=== PATIENT | male | born 1990 | race African-American/Black ===

== ENCOUNTER 2024-02-26 18:39 | Inpatient (IN) | payer MEDICAID, OTHER ==
[~2024-02-26] VITALS: Ht 177.8 cm; Wt 107.7 kg
[2024-02-26] MEDS ORDERED: FLUO-418 PO (20:14)
[2024-02-26] MEDS ORDERED: HYDR-4584 PO (20:14)
[2024-02-26 20:46] LABS: BASOPHILS % (AUTO) 0.5 % (0.0-2.0); EOSINOPHILS % (AUTO) 0.2 % (1.0-6.0); HEMATOCRIT 47.1 % (41-53); HEMOGLOBIN 15.3 g/dL (13.5-17.5); LYMPHOCYTES # (AUTO) 1.3 K/uL (1.0-4.8); LYMPHOCYTES % (AUTO) 8.3 % (22.0-44.0); MEAN CORPUSCULAR HEMOGLOBIN 28.3 pg (26.0-34.0); MEAN CORPUSCULAR HGB CONC 32.4 G/dL (31.0-37.0); MEAN CORPUSCULAR VOLUME 88 fL (80-100); MONOCYTES # (AUTO) 1.2 K/uL (0.1-1.0); MONOCYTES % (AUTO) 7.7 % (2.0-9.0); NEUTROPHILS # (AUTO) 13.1 K/uL (1.8-7.7); NEUTROPHILS % (AUTO) 83.3 % (40.0-70.0); PLATELET COUNT (AUTO) 319 K/uL (150-450); RED BLOOD CELL COUNT(AUTO) 5.39 MIL/uL (4.50-5.90); RED CELL DISTRIBUTION WIDTH 14.2 % (11.5-14.5); WHITE BLOOD COUNT (AUTO) 15.7 K/uL (4.5-11.0)
[2024-02-26 20:54] LABS: ANION GAP 9 mmol/L (8-16); CARBON DIOXIDE 27 mmol/L (22-29); CHLORIDE 107 mmol/L (98-107); CREATININE 1.91 mg/dL (0.60-1.30); GLOMERULAR FILTR. RATE CALC 50 mL/min (>60); GLUCOSE,RANDOM 104 mg/dL (70-110); SODIUM SERUM 143 mmol/L (136-145); UREA NITROGEN, BLOOD 21 mg/dL (7-18)
[2024-02-26 21:24] LABS: ALCOHOL, BLOOD (SERUM) < 3 mg/dL (0-10)
[2024-02-26] MEDS ORDERED: HALOPERIDOL 5 MG TABLET PO PRN (21:30)
[2024-02-26] MEDS ORDERED: LORazepam 2 MG TABLET PO PRN (21:30)
[2024-02-26] MEDS ORDERED: ZOLPIDEM TARTRATE 10 MG TABLET PO PRN (21:30)
[2024-02-26 21:58] LABS: COVID AG,FIA SOURCE NASAL SWAB
[2024-02-26 22:19] LABS: SARS-COV2 (COVID) ANTIGEN,FIA Negative (Negative)
[2024-02-26 23:47] VITALS: BP 140/89; PULSE 97; RESP 18; TEMP 97.7; O2SAT 96
[2024-02-26 23:53] VITALS: BP 140/89; PULSE 97; RESP 18; TEMP 97.7; O2SAT 96
[2024-02-27] MEDS ORDERED: INFLUENZA VIRUS VACCINE TVS (6MO+) 2024-25/PF 45 MCG/0.5 ML SYRINGE IM. ONE (00:15)
[2024-02-27 09:43] VITALS: BP 143/96; PULSE 91; RESP 18; TEMP 97.6; O2SAT 97
[2024-02-27] MEDS: FLUoxetine HCL 20 MG CAPSULE PO SCH (13:08)
[2024-02-27] MEDS ORDERED: MAGNESIUM HYDROXIDE SUSPENSION 30 ML UDCUP PO PRN (19:00)
[2024-02-27] MEDS ORDERED: DOCUSATE SODIUM 100 MG CAPSULE PO PRN (19:00)
[2024-02-27] MEDS ORDERED: CloNIDine HCL 0.1 MG TABLET PO PRN (19:00)
[2024-02-27] MEDS ORDERED: NICOTINE 14 MG/24 HOUR PATCH TD PRN (19:00)
[2024-02-27] MEDS ORDERED: PETROLATUM,WHITE 28 GM JELLY TP PRN (19:00)
[2024-02-27] MEDS ORDERED: LOPERAMIDE HCL 2 MG CAPSULE PO PRN (19:00)
[2024-02-27] MEDS ORDERED: ALBUTEROL SULFATE HFA 90 MCG/PUFF 8 GM INHALER IH PRN (19:00)
[2024-02-27] MEDS ORDERED: MAG HYDROX/ALUMINUM HYD/SIMETH ES 30 ML SUSPENSION UDCUP PO PRN (19:00)
[2024-02-27] MEDS ORDERED: ONDANSETRON 4 MG TABLET PO PRN (19:00)
[2024-02-27] MEDS ORDERED: IBUPROFEN 400 MG TABLET PO PRN (19:00)
[2024-02-27] MEDS ORDERED: ACETAMINOPHEN 325 MG TABLET PO PRN (19:00)
[2024-02-27] MEDS ORDERED: GuaiFENesin/D-METHORPHAN [SUGAR-FREE] 200-20MG/10 ML SYRUP UDCUP PO PRN (19:00)
[2024-02-27 20:47] VITALS: BP 111/71; PULSE 87; RESP 18; TEMP 98.6; O2SAT 99
[2024-02-28 08:44] VITALS: BP 146/94; PULSE 98; RESP 18; TEMP 97.5; O2SAT 98
[2024-02-28 09:06] LABS: THYROID STIMULATING HORMONE 0.89 uIU/mL (0.36-3.74)
[2024-02-28 09:26] LABS: HEMOGLOBIN A1C 5.8 % (3.8-5.6)
[2024-02-28 12:24] LABS: CHOL/HDL RATIO 3.3 (4.2-7.3)
[2024-02-28 20:21] VITALS: BP 105/66; PULSE 97; RESP 17; TEMP 97.5; O2SAT 97
[2024-02-29 08:18] LABS: ANION GAP 6 mmol/L (8-16); CALCIUM, TOTAL 9.1 mg/dL (8.8-10.5); CARBON DIOXIDE 30 mmol/L (22-29); CHLORIDE 101 mmol/L (98-107); CREATININE 1.36 mg/dL (0.60-1.30); GLOMERULAR FILTR. RATE CALC > 60 mL/min (>60); GLUCOSE,RANDOM 96 mg/dL (70-110); POTASSIUM 4.1 mmol/L (3.5-5.1); SODIUM SERUM 137 mmol/L (136-145); UREA NITROGEN, BLOOD 16 mg/dL (7-18)
[2024-02-29 09:05] VITALS: BP 138/95; PULSE 93; RESP 18; TEMP 98.3; O2SAT 98
[2024-02-29 21:36] VITALS: BP 143/97; PULSE 86; RESP 18; TEMP 97.3; O2SAT 98
[2024-03-01 08:34] VITALS: BP 147/86; PULSE 88; RESP 18; TEMP 97.1; O2SAT 98
[2024-03-01 20:42] VITALS: BP 130/83; PULSE 91; RESP 18; TEMP 97.2; O2SAT 98
[2024-03-02 08:45] VITALS: BP 121/81; PULSE 86; RESP 18; TEMP 97.7; O2SAT 97
[2024-03-02] MEDS ORDERED: FLUO-418 PO (10:51)
== END 2024-03-02 11:50 | disposition home or self-care (01) | DRG 751 ==
LOC: EMS 18:39 → 3EI 23:29
PROVIDERS: ADMIT Psychiatry & Neurology Child & Adolescent Psychiatry; ATTEND Psychiatry & Neurology Child & Adolescent Psychiatry
PROC: GZ56ZZZ Individual Psychotherapy, Supportive (ICD-10-PCS; principal; 2024-02-27)
PROC: GZ52ZZZ Individual Psychotherapy, Cognitive (ICD-10-PCS; 2024-02-28)
PROC: GZHZZZZ Group Psychotherapy (ICD-10-PCS; 2024-02-29)
DX: F32.2 Major depressive disorder, single episode, severe without psychotic features (principal); N17.9 Acute kidney failure, unspecified; Z20.822 Contact with and (suspected) exposure to COVID-19; F63.9 Impulse disorder, unspecified; F41.9 Anxiety disorder, unspecified; D72.829 Elevated white blood cell count, unspecified; Z79.899 Other long term (current) drug therapy; F70 Mild intellectual disabilities
CPT/HCPCS: 80048; 80061; 83036; 84443; 85025; 99285; G0480